=== PATIENT | male | born 1990 | race Caucasian/White ===

== ENCOUNTER 2018-03-02 03:01 | Emergency (ER) | payer BC ==
[2018-03-02] MEDS ORDERED: NORMAL SALINE 1000 ML 1,000 ML IV ONE (05:15)
[2018-03-02] MEDS ORDERED: VANCOMYCIN HCL INJ 1000 MG VIAL IV ONE (05:17)
[2018-03-02] MEDS ORDERED: CLINDAMYCIN 600 MG/D5W RTU 600 MG/50 ML RTUPB IV ONE (05:17)
--- NOTE | 2018-03-02 05:54 | RADIOLOGY REPORT (SQ) ---
EXAM DESCRIPTION: XR ELBOW 3 VIEWS COMPLETED DATE/TME: 03/02/2018 05:16 CLINICAL HISTORY: 27 years Male, swelling COMPARISON: None. Findings: Known soft tissue injury posterior right elbow; no radioopaque foreign body. Bones, joints, and soft tissues of the RIGHT XR ELBOW 3 VIEWS appear otherwise intact. IMPRESSION: Soft tissue injury; else, no acute findings. .
[2018-03-02 05:56] LABS: ABSOLUTE LYMPHOCYTES (AUTO) 1.1 10^3/uL (0.5-4.7); ABSOLUTE MONOCYTES (AUTO) 0.7 10^3/uL (0.1-1.4); ABSOLUTE NEUT (AUTO) 6.5 10^3/uL (1.7-8.2); BASOPHILS % (AUTO) 0.5 % (0-2); EOSINOPHILS % (AUTO) 0.3 % (0-6); HEMATOCRIT 41.9 % (37.9-51.0); HEMOGLOBIN 14.7 g/dL (13.5-17.0); LYMPHOCYTES % (AUTO) 12.9 % (13-45); MEAN CORPUSCULAR VOLUME 89 fl (80-97); MONOCYTES % (AUTO) 7.9 % (3-13); PLATELET COUNT 210 10^3/uL (150-450); RED BLOOD COUNT 4.74 10^6/uL (4.35-5.55); RED CELL DISTRIBUTION WIDTH 13.7 % (11.5-14.0); SEGMENTED NEUTROPHILS % (AUTO) 78.4 % (42-78); TOTAL CELLS COUNTED % (AUTO) 100 %; WHITE BLOOD COUNT 8.3 10^3/uL (4.0-10.5)
[2018-03-02 06:19] LABS: ALANINE AMINOTRANSFERASE 25 U/L (21-72); ALKALINE PHOSPHATASE 62 U/L (38-126); ANION GAP 9 (5-19); ASPARTATE AMINO TRANSFERASE 55 U/L (17-59); BILIRUBIN,DIRECT 0.3 mg/dL (0.0-0.4); BILIRUBIN,TOTAL 0.8 mg/dL (0.2-1.3); BLOOD UREA NITROGEN 7 mg/dL (7-20); CALCIUM 9.6 mg/dL (8.4-10.2); CARBON DIOXIDE 30 mmol/L (22-30); CHLORIDE 100 mmol/L (98-107); GLUCOSE 102 mg/dL (75-110); POTASSIUM 3.7 mmol/L (3.6-5.0); SODIUM 139.3 mmol/L (137-145); TOTAL PROTEIN 7.9 g/dL (6.3-8.2)
--- NOTE | 2018-03-02 07:23 | ER Document Report ---
ED General - General Chief Complaint: Wound Infection Stated Complaint: RIGHT ARM PAIN Time Seen by Provider: 03/02/18 07:00 Notes: Patient is a 27-year-old male who presents to the emergency department with a chief complaint of right arm swelling. He states that he fell 2 weeks ago while riding on a skateboard and cut his right arm and elbow. He went to urgent care yesterday and received antibiotics and has been on antibiotics for 1 day. He was given Bactrim and Keflex for his cellulitis and cuts. His right elbow has been draining clear and purulent fluid. He states that he feels his arm is getting worse. He also has some numbness to the ulnar aspect of his right arm. He denies pain. He has no past medical history. TRAVEL OUTSIDE OF THE [place] IN LAST 30 DAYS: No - Related Data Allergies/Adverse Reactions: No Known Allergies Allergy (Verified 03/02/18 07:23) Past Medical History - Social History Smoking Status: Current Some Day Smoker Frequency of alcohol use: Rare Drug Abuse: Marijuana Family History: Reviewed & Not Pertinent Psychiatric Medical History: Reports: Hx Bipolar Disorder - Immunizations Hx Diphtheria, Pertussis, Tetanus Vaccination: Yes Review of Systems - Review of Systems Notes: REVIEW OF SYSTEMS: CONSTITUTIONAL : Denies recent illness. Denies recent unintentional weight loss. Denies fever, chills, or sweats. EENT: Denies eye, ear, throat, or mouth pain, discharge, or symptoms. Denies nasal or sinus congestion. CARDIOVASCULAR: Denies chest pain. RESPIRATORY: Denies shortness of breath, cough, congestion, difficulty breathing, or wheezing. GASTROINTESTINAL: Denies nausea, vomiting, and diarrhea. Denies abdominal pain. Denies constipation. GENITOURINARY: Denies difficulty urinating, burning, blood in urine, urgency or frequency. MUSCULOSKELETAL: See HPI SKIN: See HPI HEMATOLOGIC : Denies easy bruising or bleeding. LYMPHATIC: Denies swollen, painful, enlarged glands. NEUROLOGICAL: Denies no numbness or tingling denies weakness. Denies headache. Denies altered mental status. Denies alteration in speech. PSYCHIATRIC: Denies stress, anxiety, alteration in sleep patterns, or depression. All other systems reviewed and negative. Physical Exam - Vital signs Vitals: Temp Pulse Resp BP Pulse Ox 97.9 F 103 H 22 H 155/86 H 100 03/02/18 03:29 03/02/18 03:29 03/02/18 03:29 03/02/18 03:29 03/02/18 03:29 - Notes Notes: PHYSICAL EXAMINATION: GENERAL: Appears well, healthy, well-nourished, no acute distress. HEAD: Normocephalic, atraumatic. EYES: PERRL, conjunctiva normal, all extraocular movements intact, sclera nonicteric ENT: Moist mucous membranes. NECK: Supple, no noticeable swelling, redness, rash. Normal range of motion. LUNGS: Equal breath sounds bilaterally and clear to auscultation. No wheezes rales or rhonchi. CARDIOVASCULAR: S1-S2, regular rate, regular rhythm. Radial pulses 2+, normal. ABDOMEN: Normoactive bowel sounds. Soft, nontender, no guarding, no rebound tenderness, and no masses palpated. EXTREMITIES: Normal strength and range of motion, no pitting or edema. No cyanosis. Healed cut to ulnar aspect of right arm. Open laceration to right elbow. Draining clear fluid. Surrounding cellulitis to areas. NEUROLOGICAL: Moves all extremities upon command. Strength 5/5 in all extremities. PSYCH: Normal mood, normal affect. SKIN: Warm, dry. No rash, lesions, ulcerations noted. Normal skin turgor. Course - Re-evaluation Re-evalutation: 03/02/18 07:25 Patient's x-ray is normal at this time. There is no acute fracture. His labs are normal, no leukocytosis noted. Unfortunately since the patient has only been on antibiotics for 1 day, he has not had enough antibiotics in his system to fail outpatient therapy. I have explained to him that he needs to be on antibiotics for another 3-4 more days. I have educated him on making sure he takes his medications as prescribed. I have a very low suspicion of compartment syndrome, an acute fracture, and sepsis. Verbal discharge instructions were given to the patient. They verbalized understanding. They are stable for discharge. - Vital Signs Vital signs: Temp Pulse Resp BP Pulse Ox 98.6 F 73 18 140/73 H 98 03/02/18 08:59 03/02/18 08:59 03/02/18 08:59 03/02/18 08:59 03/02/18 08:59 - Laboratory Result Diagrams: 03/02/18 05:45 03/02/18 05:45 Laboratory results interpreted by me: 03/02/18 05:45 Seg Neutrophils % 78.4 H Lymphocytes % 12.9 L Discharge - Discharge Clinical Impression: Swelling Cellulitis Qualifiers: Site of cellulitis: extremity Site of cellulitis of extremity: upper extremity Laterality: right Qualified Code(s): L03.113 - Cellulitis of right upper limb Fall Qualifiers: Encounter type: initial encounter Qualified Code(s): W19.XXXA - Unspecified fall, initial encounter Condition: Stable Disposition: HOME, SELF-CARE Additional Instructions: You were seen here in the emergency department for swelling of your right elbow after a fall. Please continue the medications you have been prescribed by the urgent care. You may continue to drain your arm to help with the swelling. Please keep your arm elevated a few times a day to help with the swelling. You may take ibuprofen 600 mg and acetaminophen 1000 mg every 6 hours as needed for pain and swelling.If you feel your arm is not any better in 4-5 days, please return to the emergency department. If you develop a fever greater than 100.4 F while on Motrin and Tylenol, have worsening swelling, or have any symptoms that are worrisome to you, please return to the emergency department.
[2018-03-02 09:00] VITALS: BP 140/73
== END 2018-03-02 09:00 | disposition home or self-care (01) ==
LOC: ER 03:01
DX: S51.011A Laceration without foreign body of right elbow, initial encounter (principal); L03.113 Cellulitis of right upper limb; V00.131A Fall from skateboard, initial encounter; Y93.51 Activity, roller skating (inline) and skateboarding; R20.0 Anesthesia of skin; F17.200 Nicotine dependence, unspecified, uncomplicated
CPT/HCPCS: 36415; 87040; 85025; 80053; 73080; J7030; J3370

== ENCOUNTER 2018-08-08 13:31 | Emergency (ER) | payer BC ==
[2018-08-08 13:39] VITALS: BP 125/77
--- NOTE | 2018-08-08 13:49 | ER Document Report ---
ED Medical Screen (RME) - General Chief Complaint: Suicidal Ideation Stated Complaint: IVC Time Seen by Provider: 08/08/18 13:39 Mode of Arrival: Ambulatory Information source: Law Enforcement Notes: 28-year-old male presented to ED for IVC. He has papers taken out of him by Dr. Mcdaniels. He placed the video on the Internet of him driving down the road taken Xanax and putting a fake gun to his mouth. He was brought to the emergency room by the police. He states he has no thoughts of hurting himself or anybody else and never has had a headache thoughts of hurting himself or anybody else. He states he has been IVC before but he always gets out right away. I have greeted and performed a rapid initial assessment of this patient. A comprehensive ED assessment and evaluation of the patient, analysis of test results and completion of medical decision making process will be conducted by an additional ED providers. Dictation of this chart was performed using voice recognition software; therefore, there may be some unintended grammatical errors. TRAVEL OUTSIDE OF THE [place] IN LAST 30 DAYS: No - Related Data Allergies/Adverse Reactions: No Known Allergies Allergy (Verified 08/08/18 13:32) Past Medical History - Social History Chew tobacco use (# tins/day): No Frequency of alcohol use: None Drug Abuse: None Renal/ Medical History: Denies: Hx Peritoneal Dialysis Psychiatric Medical History: Reports: Hx Bipolar Disorder - Immunizations Hx Diphtheria, Pertussis, Tetanus Vaccination: Yes Physical Exam - Vital signs Vitals: Temp Pulse Resp BP Pulse Ox 98.4 F 89 16 125/77 97 08/08/18 13:38 08/08/18 13:38 08/08/18 13:38 08/08/18 13:38 08/08/18 13:38 Course - Vital Signs Vital signs: Temp Pulse Resp BP Pulse Ox 98.4 F 89 16 125/77 97 08/08/18 13:38 08/08/18 13:38 08/08/18 13:38 08/08/18 13:38 08/08/18 13:38
[2018-08-08 14:22] LABS: ABSOLUTE BASOPHILS # (AUTO) 0.1 10^3/uL (0.0-0.2); ABSOLUTE EOSINOPHILS # (AUTO) 0.1 10^3/uL (0.0-0.6); ABSOLUTE LYMPHOCYTES (AUTO) 1.7 10^3/uL (0.5-4.7); ABSOLUTE MONOCYTES (AUTO) 0.5 10^3/uL (0.1-1.4); ABSOLUTE NEUT (AUTO) 4.4 10^3/uL (1.7-8.2); BASOPHILS % (AUTO) 1.1 % (0-2); EOSINOPHILS % (AUTO) 1.1 % (0-6); HEMATOCRIT 44.8 % (37.9-51.0); HEMOGLOBIN 15.4 g/dL (13.5-17.0); MEAN CORPUSCULAR HEMOGLOBIN 31.4 pg (27.0-33.4); MEAN CORPUSCULAR HGB CONC 34.4 g/dL (32.0-36.0); MEAN CORPUSCULAR VOLUME 91 fl (80-97); MONOCYTES % (AUTO) 6.8 % (3-13); PLATELET COUNT 228 10^3/uL (150-450); RED BLOOD COUNT 4.91 10^6/uL (4.35-5.55); RED CELL DISTRIBUTION WIDTH 13.2 % (11.5-14.0); TOTAL CELLS COUNTED % (AUTO) 100 %; WHITE BLOOD COUNT 6.7 10^3/uL (4.0-10.5)
[2018-08-08 14:42] LABS: ALANINE AMINOTRANSFERASE 23 U/L (21-72); ALKALINE PHOSPHATASE 45 U/L (38-126); ANION GAP 12 (5-19); ASPARTATE AMINO TRANSFERASE 22 U/L (17-59); BILIRUBIN,DIRECT 0.3 mg/dL (0.0-0.4); BILIRUBIN,TOTAL 0.4 mg/dL (0.2-1.3); BLOOD UREA NITROGEN 20 mg/dL (7-20); CALCIUM 9.8 mg/dL (8.4-10.2); CARBON DIOXIDE 26 mmol/L (22-30); CHLORIDE 105 mmol/L (98-107); GLUCOSE 94 mg/dL (75-110); POTASSIUM 4.6 mmol/L (3.6-5.0); SODIUM 143.1 mmol/L (137-145); TOTAL PROTEIN 7.8 g/dL (6.3-8.2)
[2018-08-08 14:44] LABS: ACETAMINOPHEN < 10 ug/mL (10-30); ALCOHOL < 10 mg/dL (NONE DETECTED); SALICYLATE < 1.0 mg/dL (2.0-20.0)
[2018-08-08 15:26] LABS: APPEARANCE,URINE CLEAR; BILIRUBIN,URINE NEGATIVE (NEGATIVE); COLOR,URINE YELLOW; GLUCOSE, URINE NEGATIVE (NEGATIVE); KETONES,URINE TRACE mg/dL (NEGATIVE); LEUKOCYTE ESTERASE,URINE NEGATIVE (NEGATIVE); NITRITE,URINE NEGATIVE (NEGATIVE); PROTEIN,URINE NEGATIVE (NEGATIVE); URINE SPECIFIC GRAVITY 1.026; UROBILINOGEN,URINE NEGATIVE mg/dL (<2.0)
--- NOTE | 2018-08-08 15:30 | ER Document Report ---
ED General - General Chief Complaint: Suicidal Ideation Stated Complaint: IVC Time Seen by Provider: 08/08/18 13:39 Mode of Arrival: Ambulatory TRAVEL OUTSIDE OF THE [place] IN LAST 30 DAYS: No - HPI Notes: Patient is a 28-year-old male that presents to the emergency department for chief complaint of "some bullshit". HPI is limited because patient does not want to speak with me. When I asked him why he was in the emergency room he stated that he was "being awesome". Chart review shows patient was IVC by Dr. Mcdaniels after posting a video of himself online taking Xanax with a gun pointed in his mouth while driving. Patient presented by police escort with IVC paperwork filled out. He will not provide any further information to me Past Medical History: Reviewed in chart Past Surgical History: Reviewed in chart Social History: Reviewed in chart Family History: Reviewed and noncontributory for presenting illness Allergies: Reviewed, see documented allergy list. REVIEW OF SYSTEMS: Unable to obtain because of patient unwillingness to cooperate PHYSICAL EXAMINATION: Vital signs reviewed, nursing noted reviewed. GENERAL: Well-appearing, well-nourished and in no acute distress. HEAD: Atraumatic, normocephalic. EYES: Eyes appear normal, extraocular movements intact, sclera anicteric, conjunctiva are normal. ENT: Moist mucous membranes. No apparent facial trauma NECK: Normal range of motion, supple without lymphadenopathy LUNGS: Breath sounds clear to auscultation bilaterally and equal. No wheezes rales or rhonchi. HEART: Regular rate and rhythm without murmurs ABDOMEN: Soft, nontender. No rebound, guarding, or rigidity. EXTREMITIES: Nontender, good range of motion, no pitting or edema. NEUROLOGICAL: No focal neurological deficits. Moves all extremities spontaneously Motor and sensory grossly intact on exam. PSYCH: Uncooperative, flat affect. SKIN: Warm, Dry, normal turgor, no rashes or lesions noted on exposed skin - Related Data Allergies/Adverse Reactions: No Known Allergies Allergy (Verified 08/08/18 13:32) Past Medical History - General Information source: Law Enforcement - Social History Smoking Status: Never Smoker Chew tobacco use (# tins/day): No Frequency of alcohol use: None Drug Abuse: None Family History: Reviewed & Not Pertinent Patient has suicidal ideation: No Patient has homicidal ideation: No Renal/ Medical History: Denies: Hx Peritoneal Dialysis Psychiatric Medical History: Reports: Hx Bipolar Disorder - Immunizations Hx Diphtheria, Pertussis, Tetanus Vaccination: Yes Physical Exam - Vital signs Vitals: Temp Pulse Resp BP Pulse Ox 98.4 F 89 16 125/77 97 08/08/18 13:38 08/08/18 13:38 08/08/18 13:38 08/08/18 13:38 08/08/18 13:38 Course - Re-evaluation Re-evalutation: 08/08/18 15:30 Vitals reviewed. Nursing notes reviewed. Patient is in no acute distress. He has an unremarkable work-up. He presented on IVC paperwork for concern of possi ble suicidal ideation. Patient will not speak with me or provide any further HPI. At this time he will remain in the emergency room on IVC petition until further psychiatric evaluation. He is medically cleared. Laboratory 08/08/18 08/08/18 08/08/18 14:15 14:15 14:15 WBC 6.7 RBC 4.91 Hgb 15.4 Hct 44.8 MCV 91 MCH 31.4 MCHC 34.4 RDW 13.2 Plt Count 228 Seg Neutrophils % 65.0 Lymphocytes % 26.0 Monocytes % 6.8 Eosinophils % 1.1 Basophils % 1.1 Absolute Neutrophils 4.4 Absolute Lymphocytes 1.7 Absolute Monocytes 0.5 Absolute Eosinophils 0.1 Absolute Basophils 0.1 Sodium 143.1 Potassium 4.6 Chloride 105 Carbon Dioxide 26 Anion Gap 12 BUN 20 Creatinine 0.84 Est GFR ( Amer) > 60 Est GFR (Non-Af Amer) > 60 Glucose 94 Calcium 9.8 Total Bilirubin 0.4 Direct Bilirubin 0.3 Neonat Total Bilirubin Not Reportable Neonat Direct Bilirubin Not Reportable Neonat Indirect Bili Not Reportable AST 22 ALT 23 Alkaline Phosphatase 45 Total Protein 7.8 Albumin 5.0 Urine Color YELLOW Urine Appearance CLEAR Urine pH 6.0 Ur Specific [place] 1.026 Urine Protein NEGATIVE Urine Glucose (UA) NEGATIVE Urine Ketones TRACE H Urine Blood NEGATIVE Urine Nitrite NEGATIVE Urine Bilirubin NEGATIVE Urine Urobilinogen NEGATIVE Ur Leukocyte Esterase NEGATIVE Urine WBC (Auto) 1 Urine RBC (Auto) 0 Squamous Epi Cells Auto 1 Urine Mucus (Auto) RARE Urine Ascorbic Acid 20 H Salicylates < 1.0 L Acetaminophen < 10 L Serum Alcohol < 10 - Vital Signs Vital signs: Temp Pulse Resp BP Pulse Ox 98.4 F 89 16 125/77 97 08/08/18 13:38 08/08/18 13:38 08/08/18 13:38 08/08/18 13:38 08/08/18 13:38 - Laboratory Result Diagrams: 08/08/18 14:15 08/08/18 14:15 Laboratory results interpreted by me: 08/08/18 08/08/18 14:15 14:15 Urine Ketones TRACE H Urine Ascorbic Acid 20 H Salicylates < 1.0 L Acetaminophen < 10 L Discharge - Discharge Clinical Impression: Suicidal ideation Condition: Stable Disposition: PSYCH HOSP/UNIT
[2018-08-08 15:38] LABS: URINE AMPHETAMINES SCREEN NEGATIVE; URINE BARBITURATES SCREEN NEGATIVE; URINE BENZODIAZEPINES SCREEN UNCONFIRMED POSITIVE; URINE COCAINE SCREEN UNCONFIRMED POSITIVE; URINE MARIJUANA (THC) SCREEN UNCONFIRMED POSITIVE; URINE METHADONE SCREEN NEGATIVE
[2018-08-08 15:47] LABS: URINE PHENCYCLIDINE SCREEN NEGATIVE
--- NOTE | 2018-08-08 15:49 | PSYCHOLOGICAL NOTE ---
Psych Note - Psych Note Date seen by psych provider: 08/08/18 Time seen by psych provider: 14:20 Psych Note: Reason for Consult: IVC 28-year-old male presented to ED for IVC. He has papers taken out of him by Dr. Mcdaniels. He placed the video on the Internet of him driving down the road taken Xanax and putting a fake gun to his mouth. He was brought to the emergency room by the police. He states he has no thoughts of hurting himself or anybody else and never has had a headache thoughts of hurting himself or anybody else. He states he has been IVC before but he always gets out right away. Patient reports that he was posting on the Internet to boost his ratings. He reports that it was a toy gun that he put in his mouth. Patient denies taking 2 Xanax stating that just because he put them in his mouth does not mean that he actually swallowed stating that he only took one. When asked where the other pill is he states "I don't know, you have to find it. Besides, I believe my prescription says I can take 2 a day." Patient's current prescription was pi cked up today and only 2 pills are currently missing. His prescription identifies taking 1 pill twice daily. Patient refuses to disclose his "rapper name" however reports that many wrappers post on the Internet things that he has done to boost ratings and denies wanting to kill himself. Patient initially denies stating that he was going to tonight however when clinician pointed out that the video was seen by this clinician he stated "it is just to saying you can get hit by a car at any time, I never said I wanted to ." Patient reports frustration that many people post on the Internet things that are fake to increase the ratings and does not understand why he was brought to [facility] ED under involuntary commitment. Patient then reports that the clinician is wasting his time because he has things to do. Patient confirms he does have diagnosis of bipolar and states that his medical doc provides him his prescriptions of Abilify and Xanax which he feels are appropriate medications to address his diagnosis. Medication recommendations per [facility]'s contracted psychiatrist DR Cristóbal GUERRERO are as follows Thorazine 50mg IM every 8 hours Cogentin 1mg IM every Unspecified bipolar per history provided by patient Substance abuse per history Impression/Plan: Patient is recommended to continue under IVC. Patient presented to [facility] after posting pictures and videos of making suicidal comments and gestures. While patient states this this was to increase his readings on the Internet, there is concern that the patient has little insight in his current situation i.e. not understanding why he was brought to the hospital after making suicidal comments and holding what appeared to be a real gun in his mouth. Medication recommendations have been provided and patient will be reevaluated. No visitors or phone calls for this patient. There is significant concern that the patient will have visitors that would bring illegal substances. Dr. Mcdaniels was consulted and the care management of this patient; attending physicians in agreement with recommendations and disposition.
--- NOTE | 2018-08-10 00:09 | EKG REPORT ---
SEVERITY:- NORMAL ECG - SINUS RHYTHM ST ELEV, PROBABLE NORMAL EARLY REPOL PATTERN : Confirmed by: Karie Bourgeois 10-Aug-2018 00:08:10
== END 2018-08-08 17:15 ==
LOC: ER 13:31
DX: R45.851 Suicidal ideations (principal)
CPT/HCPCS: 36415; 80053; 80307; 81001; 85025; 93005; 93010; 99281

== ENCOUNTER 2018-08-09 13:42 | Emergency (ER) | payer BC ==
--- NOTE | 2018-08-09 14:02 | ER Document Report ---
ED Medical Screen (RME) - General Chief Complaint: Suicidal Ideation Stated Complaint: PSYCH EVAL Time Seen by Provider: 08/09/18 13:51 Mode of Arrival: Ambulatory Information source: Patient Notes: Patient presents emergency department for psych eval. Reports he was seen in the emergency department yesterday, IVC. Patient reports he posted a video in response to a rapper song with a gun in his mouth and as a result the IVC them yesterday. When he woke up he left the hospital. He reports he was mad because they said he would have to stay here all night. He is back now to be evaluated. Reports he drank approximately 4 beers and smoked a blunt. Patient is calm at this time. Patient reports he has scheduled himself to go to rehab for substance abuse in [place]. His father is at his side and agrees with this. I have greeted and performed a rapid initial assessment of this patient. A comprehensive ED assessment and evaluation of the patient, analysis of test results and completion of the medical decision making process will be conducted by additional ED providers. Dictation of this chart was performed using voice recognition software; therefore, there may be some unintended grammatical errors. TRAVEL OUTSIDE OF THE [place] IN LAST 30 DAYS: No - Related Data Allergies/Adverse Reactions: No Known Allergies Allergy (Verified 08/09/18 13:43) Past Medical History Renal/ Medical History: Denies: Hx Peritoneal Dialysis Psychiatric Medical History: Reports: Hx Bipolar Disorder - Immunizations Hx Diphtheria, Pertussis, Tetanus Vaccination: Yes Physical Exam - Vital signs Vitals: Temp Pulse Resp BP Pulse Ox 99.5 F 98 16 131/74 H 97 08/09/18 13:49 08/09/18 13:49 08/09/18 13:49 08/09/18 13:49 08/09/18 13:49 Course - Vital Signs Vital signs: Temp Pulse Resp BP Pulse Ox 99.5 F 98 16 131/74 H 97 08/09/18 13:49 08/09/18 13:49 08/09/18 13:49 08/09/18 13:49 08/09/18 13:49
[2018-08-09 14:46] LABS: ABSOLUTE BASOPHILS # (AUTO) 0.1 10^3/uL (0.0-0.2); ABSOLUTE EOSINOPHILS # (AUTO) 0.1 10^3/uL (0.0-0.6); ABSOLUTE LYMPHOCYTES (AUTO) 1.7 10^3/uL (0.5-4.7); ABSOLUTE MONOCYTES (AUTO) 0.5 10^3/uL (0.1-1.4); ABSOLUTE NEUT (AUTO) 5.2 10^3/uL (1.7-8.2); BASOPHILS % (AUTO) 0.9 % (0-2); EOSINOPHILS % (AUTO) 1.4 % (0-6); HEMATOCRIT 41.9 % (37.9-51.0); HEMOGLOBIN 14.5 g/dL (13.5-17.0); LYMPHOCYTES % (AUTO) 22.2 % (13-45); MEAN CORPUSCULAR HEMOGLOBIN 31.8 pg (27.0-33.4); MEAN CORPUSCULAR HGB CONC 34.6 g/dL (32.0-36.0); MEAN CORPUSCULAR VOLUME 92 fl (80-97); MONOCYTES % (AUTO) 6.3 % (3-13); PLATELET COUNT 220 10^3/uL (150-450); RED BLOOD COUNT 4.57 10^6/uL (4.35-5.55); RED CELL DISTRIBUTION WIDTH 13.2 % (11.5-14.0); SEGMENTED NEUTROPHILS % (AUTO) 69.2 % (42-78); TOTAL CELLS COUNTED % (AUTO) 100 %; WHITE BLOOD COUNT 7.5 10^3/uL (4.0-10.5)
[2018-08-09 14:53] LABS: APPEARANCE,URINE SLIGHTLY-CLOUDY; BILIRUBIN,URINE NEGATIVE (NEGATIVE); COLOR,URINE YELLOW; GLUCOSE, URINE NEGATIVE (NEGATIVE); KETONES,URINE TRACE mg/dL (NEGATIVE); LEUKOCYTE ESTERASE,URINE NEGATIVE (NEGATIVE); NITRITE,URINE NEGATIVE (NEGATIVE); PROTEIN,URINE NEGATIVE (NEGATIVE); URINE SPECIFIC GRAVITY 1.021; UROBILINOGEN,URINE NEGATIVE mg/dL (<2.0)
[2018-08-09 15:05] LABS: URINE AMPHETAMINES SCREEN NEGATIVE; URINE BARBITURATES SCREEN NEGATIVE; URINE BENZODIAZEPINES SCREEN UNCONFIRMED POSITIVE; URINE COCAINE SCREEN UNCONFIRMED POSITIVE; URINE MARIJUANA (THC) SCREEN UNCONFIRMED POSITIVE; URINE METHADONE SCREEN NEGATIVE; URINE PHENCYCLIDINE SCREEN NEGATIVE
[2018-08-09 15:06] LABS: ALANINE AMINOTRANSFERASE 19 U/L (21-72); ALBUMIN 4.5 g/dL (3.5-5.0); ALKALINE PHOSPHATASE 43 U/L (38-126); ANION GAP 10 (5-19); ASPARTATE AMINO TRANSFERASE 32 U/L (17-59); BILIRUBIN,DIRECT 0.3 mg/dL (0.0-0.4); BILIRUBIN,TOTAL 0.4 mg/dL (0.2-1.3); BLOOD UREA NITROGEN 18 mg/dL (7-20); CARBON DIOXIDE 26 mmol/L (22-30); CHLORIDE 105 mmol/L (98-107); GLUCOSE 100 mg/dL (75-110); POTASSIUM 4.3 mmol/L (3.6-5.0); SODIUM 141.4 mmol/L (137-145); TOTAL PROTEIN 7.1 g/dL (6.3-8.2)
[2018-08-09 15:07] LABS: ACETAMINOPHEN < 10 ug/mL (10-30); ALCOHOL < 10 mg/dL (NONE DETECTED); SALICYLATE < 1.0 mg/dL (2.0-20.0)
--- NOTE | 2018-08-09 15:44 | PSYCHOLOGICAL NOTE ---
Psych Note - Psych Note Date seen by psych provider: 08/09/18 Time seen by psych provider: 14:13 Psych Note: Reason for consult IVC elopement yesterday Patient presents voluntarily with his father today after eloping yesterday while on IVC petition. Patient confirms he understood he was on IVC yesterday however states that he left because he became angry that he was told he had to stay until the morning; " every other time of had to do this I just talked to somebo dy and they let me leave right away, I did not feel like staying overnight...Yeah and knows court ordered that why came back....so what is the plan...what do we need to do?" He reports that he plans to go to [place] for substance abuse treatment; "it is an 8-month [facility] treatment program which sounds kind of fun where I can get out and do stuff... I probably only go for 1 month to check it out... I promised my dad that I would go." Patient reports that today he now understands why people became concerned when he posted videos of him drinking alcohol, popping Xanax and holding a gun to his mouth on the Internet (yesterday patient told clinician we were wasting his time). Patient report that he did this for ratings and that it worked "because 600 more people watched that video" compared to the previous one. 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 He continues to discuss other job opportunities and projects he is worked on for others. Patient is alert and orientated to person, place, time and circumstance. Mood is overall euthymic however has clear tones of condescending. Affect is mood congruent. Patient denies suicidal and homicidal ideation. Slight delusions of grandeur are noted. Thought content is organized and linear. Eye contact is fair. Conversational speech is very flippant and short. Intellectual abilities appear to be average range; however, patient presents with mentality much younger (i.e. preteen to teenager) then his age. Clinician notes there does not appear to be low intellectual abilities in relation to IQ. attention and concentration are fair. Insight, judgment, impulse control is impaired. Bipolar per history Polysubstance abuse per history Impression\\plan: Patient is recommended for IVC. Patient is unable to demonstrate any insight or impulse control and his behaviors both yesterday and today as evidenced by yesterday elopement, his continued impaired insight into the concerns for his mental health and substance abuse in addition to his overall disregard to legal guidelines. Patient will be reevaluated. Dr. Mcdaniels was consulted to care management of this patient; attending physicians in agreement with recommendations and disposition.
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
--- NOTE | 2018-08-10 00:09 | EKG REPORT ---
SEVERITY:- NORMAL ECG - SINUS RHYTHM : Confirmed by: Karie Bourgeois 10-Aug-2018 00:08:01
--- NOTE | 2018-08-10 09:43 | ER Document Report ---
Doctor's Note Notes: 08/10/18 09:41 I have evaluated this pt. this am and he has no c/o at this time. He feels all of his needs are being met and his physical exam is normal. He states he has a dtox bed in [place] and wants to leave today. He will be assessed by psychiatry later today.
--- NOTE | 2018-08-10 15:47 | PSYCHOLOGICAL NOTE ---
Psych Note - Psych Note Date seen by psych provider: 08/10/18 Psych Note: Reason for consult IVC elopement yesterday Checking conducted with patient patient Mood is euthymic with congruent affect and openly engages with clinician. He reports that he feels he may have been manic almost since the beginning of the year. He reports he does take his Abilify however does not take it "all the time as I should." Patient is very willing to change medication as he feels his Abilify probably is not truly working for him. He reports he has had significant issues controlling his impulses which include walking into [employer] and shoplifting. Bipolar per history Polysubstance abuse per history Medication recommendations per [facility]'s contracted psychiatrist Dr. Cristóbal GUERRERO are as follows Zyprexa 2.5 mg twice daily Impression\\plan: Patient is recommended for continued IVC. Patient is unable to demonstrate any insight or impulse control and his behaviors both yesterday and today as evidenced by yesterday elopement, his continued impaired insight into the concerns for his mental health and substance abuse in addition to his overall disregard to legal guidelines. Medicaiton recomendations have been provided. Patient will be reevaluated. Dr. Mcdaniels was consulted to care management of this patient; attending physicians in agreement with recommendations and disposition.
[2018-08-10] MEDS ORDERED: OLANZAPINE 2.5 MG TABLET PO SCH (18:00)
[2018-08-11 06:23] VITALS: BP 132/80
== END 2018-08-11 10:04 ==
LOC: ER 13:42
DX: F31.0 Bipolar disorder, current episode hypomanic (principal); F12.10 Cannabis abuse, uncomplicated; F19.10 Other psychoactive substance abuse, uncomplicated; F14.10 Cocaine abuse, uncomplicated; Z79.899 Other long term (current) drug therapy
CPT/HCPCS: 93005; 99285; 36415; 80307 ×4; 85025; 80053; 81001; 93010; J3490